=== PATIENT | female | born 1995 | race Caucasian/White ===

== ENCOUNTER 2020-12-14 16:17 | Emergency (ER) | payer SELFPAY ==
[2020-12-14 16:24] VITALS: BP 110/66; PULSE 115; O2SAT 100
[2020-12-14 16:33] VITALS: BP 110/72; PULSE 103; RESP 22; TEMP 36.9; O2SAT 100; BMI 17.9
== END 2020-12-14 17:12 | disposition left against medical advice (07) ==
LOC: HO.ED 17:12
PROVIDERS: Emergency Provider Emergency Medicine Emergency Medical Services
DX: F41.9 Anxiety disorder, unspecified (principal); R51.9 Headache, unspecified
CPT/HCPCS: 99281; 99282

== ENCOUNTER 2022-05-28 08:39 | Emergency (ER) | payer OTHER, SELFPAY ==
[2022-05-28 08:44] VITALS: BP 100/72; PULSE 87; RESP 16; TEMP 36.9; O2SAT 97; BMI 15.7
[2022-05-28 09:18] VITALS: BP 98/73; PULSE 84; RESP 19; O2SAT 99
--- NOTE | 2022-05-28 09:22 | ECG_ITS ---
Test Reason : Chest Pain / SOB Blood Pressure : / mmHG Vent. Rate : 079 BPM Atrial Rate : 079 BPM P-R Int : 094 ms QRS Dur : 078 ms QT Int : 346 ms P-R-T Axes : 055 087 058 degrees QTc Int : 396 ms Sinus rhythm with short FL Otherwise normal ECG When compared with ECG of 08-JUN-2009 14:23, No significant changes seen Referred By: Iliana Roa Electronically Signed By:JUAN C ALEGRIA MD
--- NOTE | 2022-05-28 09:30 | ED.SOB ---
HPI - SOB/Dyspnea General Chief Complaint: Dizziness Stated Complaint: dizzy, Diff breathing Time Seen by Provider: 05/28/22 08:53 Source: patient Mode of arrival: ambulatory Limitations: no limitations History of Present Illness HPI Narrative: 26-year-old female with a history of anxiety, difficulty gaining weight, migraines, GERD, pots presents with reports of episode of shortness of breath while driving at around 08:00 this morning. Patient also felt dizzy at that time. She does report that she feels dizzy quite often due to her underlying POTS and this felt pretty similar to her previous dizziness. No associated chest pain, nausea, diaphoresis. No leg swelling or leg pain. No recent travel or sick contacts. Did have COVID 1 month ago but seems recovered from this. Has had 3 COVID vaccinations. Of note, patient has been seen by her psychiatrist Dr. Jamil recently and was started on Remeron 7.5 mg 1 week ago. Patient tells me this was for weight gain. Patient increased her dose to 15 mg yesterday because she felt like it was not helping. Patient does report since starting the medication she has had some generalized muscle aches. Related Data Allergies Allergy/AdvReac Type Severity Reaction Status Date / Time No Known Allergies Allergy Verified 05/28/22 09:22 Review of Systems Review of Systems: Yes all other systems are reviewed and are negative Constitutional: Constitutional: Reports no additional constitutional complaints, Denies body ache(s), Denies chills, Denies fever(s), Denies headache(s) and Denies weakness Eyes: Eyes: Reports no additional eye complaints and Denies change in vision ENT: Reports system reviewed and no additional complaints, except as documented, Reports dizziness, Denies headache(s), Denies nasal congestion, Denies nasal discharge and Denies neck pain Cardiovascular: Cardiovascular: Reports no additional cardiovascular complaints, Denies chest pain, Denies leg edema and Reports dyspnea Respiratory: Respiratory: Reports no additional respiratory complaints, Denies cough and Reports dyspnea Gastrointestinal: Gastrointestinal: Reports no additional gastrointestinal complaints, Denies abdominal pain, Denies diarrhea, Denies nausea and Denies vomiting Genitourinary: Genitourinary: Reports no additional female genitourinary complaints and Denies urinary incontinence Musculoskeletal: Musculoskeletal: Reports no additional musculoskeletal complaints, Denies back pain, Denies arthralgias, Denies joint swelling, Denies neck pain, Denies numbness and Denies tingling Integumentary/Breasts: Skin/Breast: Reports system reviewed and no additional complaints, except as docu and Denies rash Neurologic: Reports system reviewed and no additional complaints, except as documented, Denies Abnormal speech present, Reports dizziness, Denies headache(s), Denies numbness, Denies tingling and Denies weakness [facility] Past Medical History Attestation statement: The following information was validated with the patient. Source: old records reviewed and nursing notes reviewed Medical History Anxiety Superior mesenteric artery syndrome Social History Social History Alcohol intake: current Alcohol intake frequency: holidays/special occasions only Patient Tobacco Use Status: Never used Tobacco Use of substances other than those prescribed or required for medical reasons: No Advance Directives: No Advance Directives Information Provided: No Physical Exam Vital Signs: Vital Signs: Last Vital Signs Temp 98.4 F 05/28/22 08:44 Pulse 84 05/28/22 09:18 Resp 19 05/28/22 09:18 BP 98/73 05/28/22 09:18 Pulse Ox 99 05/28/22 09:18 O2 Del Method 05/28/22 09:18 BMI result Body Mass Index 15.7 Const: General: cooperative, healthy appearing, comfortable and no acute distress Orientation/consciousness: patient oriented x3 Limitations: no limitations HEENT: Head: Yes normal to inspection Ears: hearing grossly normal bilaterally and TM's normal bilaterally General nose exam: Normal external nose present Face and sinus: Yes normal facial exam Mouth: Normal oral and palatal mucosa present Throat: Yes posterior oropharynx normal, Yes tonsils normal and Yes uvula midline Eyes: General: appearance normal, both eyes and all related structures Pupils: Equal, round and reactive pupils present Neck: Neck: Yes normal visual inspection, Yes full ROM and Yes no lymphadenopathy Chest: Chest palpation & inspection: normal inspection of the chest Resp: Effort & Inspection: normal respiratory effort Auscultation: clear to auscultation bilaterally Cardio: Rate: regular rate Rhythm: regular rhythm Peripheral pulses: Peripheral pulses 2+ throughout GI: Inspection: Yes normal to inspection Palpation (GI): Soft to palpation and nontender Auscultation: normal bowel sounds Back/Spine/Pelvis: Thoracic/Lumbar Spine: thoracic and lumbar spine normal to inspection Skin: General skin exam: no rashes or lesions noted Neuro: General: patient oriented x3, no focal motor deficits and normal sensation to monofilament Cranial nerves: Yes Equal, round and reactive pupils present Cognition (Neuro): normal cognition Speech: No Abnormal speech present Gait exam (Neuro): Normal gait present Motor exam (neuro): 5/5 motor strength present throughout Extrem: General: Yes normal to inspection Course Course Course Narrative: 0955-patient now wants to go home. Refusing labs and x-ray. We discussed that we cannot rule out any cardiac damage from her episode earlier as well as rhabdomyolysis. These be ruled out in labs. Patient continues to decline labs. Will sign out AMA. MDM - SOB/Dyspnea MDM Narrative Medical decision making narrative: This is a 26-year-old female who was a history of anxiety, pots, migraines, GERD who presents with episode of shortness of breath which occurred while driving 08:00 today with some chronic dizziness as well. Patient denies any other associated symptoms. She feels improved on arrival. She did recently start Remeron for weight gain and took an extra dose last night because she felt that it would help. Of note, also reports some muscle aches diffusely since starting the Remeron. WIll check EKG, labs, CXR Medical Records Attestation: I reviewed the patient's medical records. Lab Data Attestation: I reviewed the patient's lab results. ECG Data Attestation: I personally reviewed and interpreted this ECG as follows: ECG interpretation date: 05/28/22 ECG interpretation time: 08:59 Interpretation: Sinus rhythm with short ND with rate of 79, normal QRS, normal QT Discharge Plan Discharge Clinical Impression: Shortness of breath Patient Disposition: Left Against Medical Advice Instructions: Against Medical Advice (ED), Shortness of Breath (ED) Additional Instructions: You decided to leave before having lab work and an x-ray done. We discussed that we cannot rule out any heart injury or tissue breakdown called rhabdomyolysis without having labs done. You decided to leave without doing this. Referrals: Physician,Nonstaff [Primary Care Provider] - 1 week Stand Alone Forms: Against Medical Advice Interventions: ED Discharge Assessment Last Done: 05/28/22 10:03 Discharge Date/Time: 05/28/22 10:03
== END 2022-05-28 10:03 | disposition left against medical advice (07) ==
PROVIDERS: Emergency Provider Emergency Medicine
DX: R42 Dizziness and giddiness (principal); R06.02 Shortness of breath; Z79.899 Other long term (current) drug therapy
CPT/HCPCS: 93005; 99283; 99284

== ENCOUNTER 2022-11-09 07:33 | Emergency (ER) | payer OTHER, SELFPAY ==
[2022-11-09 07:36] VITALS: BP 112/77; PULSE 93; RESP 18; TEMP 36.8; O2SAT 98; BMI 17.6
--- NOTE | 2022-11-09 07:59 | ED_ITS ---
HPI - Headache General Chief Complaint: Headache Stated Complaint: migraine Time Seen by Provider: 11/09/22 07:52 Source: patient Mode of arrival: ambulatory Limitations: no limitations History of Present Illness HPI Narrative: headache, started yesterday no improvement with tylenol, left sided, frontal to occipital, pressure, photophobia and auditory hurts. Nausea no vomiting, currently on her menses normal menses. Patient has had headaches since she was 4. ?Trigger is her menses. Related Data Previous Rx's Medication Instructions Recorded diphenhydramine HCl 25 mg capsule 25 mg PO TID #6 caps 11/09/22 (Benadryl) naproxen 375 mg tablet 375 mg PO BID PRN pain #14 tabs 11/09/22 Allergies Allergy/AdvReac Type Severity Reaction Status Date / Time amoxicillin Allergy Anaphylaxis Verified 11/09/22 07:38 oxycodone Allergy Hives Verified 11/09/22 07:38 Sulfa (Sulfonamide Allergy Unknown Verified 11/09/22 07:38 Antibiotics) sumatriptan Allergy Anaphylaxis Verified 11/09/22 07:38 Review of Systems Neurologic: Denies Sensory deficit (Neuro) [facility] Social History Social History Advance Directives: No Advance Directives Information Provided: No Physical Exam Vital Signs: Vital Signs: Last Vital Signs Temp 98.3 F 11/09/22 07:36 Pulse 88 11/09/22 11:45 Resp 16 11/09/22 11:45 BP 100/65 11/09/22 11:45 Pulse Ox 98 11/09/22 11:45 O2 Del Method Room Air 11/09/22 11:45 BMI result Body Mass Index 17.6 Const: General: healthy appearing Nutritional Appearance: average body habitus Orientation/consciousness: oriented to person and patient oriented x3 Limitations: no limitations HEENT: Head: Yes normal to inspection Ears: external ears normal General nose exam: Normal external nose present Mouth: Normal oral and palatal mucosa present and oropharynx normal Throat: Yes posterior oropharynx normal Eyes: General: appearance normal, both eyes and all related structures Neck: Other: supple Neck: Yes normal visual inspection Chest: Chest palpation & inspection: normal inspection of the chest Resp: Auscultation: clear to auscultation bilaterally Cardio: Jugular venous distension: no JVD Rate: regular rate Rhythm: regular rhythm Heart sounds: S1 normal heart sound present and S2 normal heart sound present GI: Inspection: Yes normal to inspection Palpation (GI): Soft to palpation, nontender and No hepatosplenomegaly present Auscultation: normal bowel sounds : General: Yes no CVA tenderness Back/Spine/Pelvis: Back: no CVA tenderness Skin: General skin exam: no rashes or lesions noted Neuro: General: oriented to person and patient oriented x3 Cranial nerves: Yes CN's II-XII intact bilaterally Motor exam (neuro): 5/5 motor strength present throughout Sensory Exam: No Sensory deficit (Neuro) Extrem: General: Yes normal to inspection Psych: Appearance: grossly normal Course Reevaluation(s) Reevaluation #1: headache broke, patient had slight dystonia to phenergan will have her take benadryl for 3 days for dystonia and naprosyn for her headache Time: 11:53 Medications Administered Discontinued Medications Generic Name Dose Route Start Last Admin Trade Name Freq PRN Reason Stop Dose Admin Diphenhydramine HCl 25 mg 11/09/22 09:15 11/09/22 09:26 Diphenhydramine Hcl 50 Mg/Ml Vial IVPUSH 11/09/22 09:16 25 mg ONCE ONE Administration Promethazine HCl 25 mg/ Sodium 51 mls @ 204 mls/hr 11/09/22 08:16 11/09/22 09:27 Chloride IV 11/09/22 08:17 Infused ONCE ONE Infusion Sodium Chloride 1,000 mls @ 999 mls/hr 11/09/22 08:30 11/09/22 10:11 Ns IVCONT 11/09/22 10:30 999 mls/hr .Q1H1M LOIS Administration Ketorolac Tromethamine 30 mg 11/09/22 08:16 11/09/22 08:35 Ketorolac Tromethamine 30 Mg/Ml Vial IVPUSH 11/09/22 08:17 30 mg ONCE ONE Administration Lorazepam 1 mg 11/09/22 09:55 11/09/22 10:06 Lorazepam 2 Mg/Ml Vial IVPUSH 11/09/22 09:56 Not Given ONCE ONE Medical Decision Making Differential Diagnosis Differential Diagnoses: The differential diagnosis associated with the presentation includes (migraine headache, dystonia) Tests considered The following testing was considered but not selected: I considered a head Ct but the patient was nonfocal with a long history of the above Chronic Conditions Patient?s care impacted by: Other (migraine) Discharge Plan Discharge Clinical Impression: Migraine, Dystonia Patient Disposition: Home, Self-Care Instructions: Migraine Headache (ED), Spasmodic Torticollis (ED) Prescriptions: New naproxen 375 mg tablet 375 mg PO BID PRN (Reason: pain) Qty: 14 0RF diphenhydramine HCl [Benadryl] 25 mg capsule 25 mg PO TID Qty: 6 0RF Referrals: Tammie Pizarro PA-C [Primary Care Provider] - 5 days
[2022-11-09] MEDS: Ketorolac Tromethamine 30 MG/ML VIAL IVPUSH (08:35)
[2022-11-09] MEDS: 0.9 % Sodium Chloride 1,000 ML 999 ML IVCONT ×2 (08:35→10:11)
[2022-11-09 08:42] VITALS: BP 112/73; PULSE 80; RESP 18; O2SAT 99
[2022-11-09] MEDS: diphenhydrAMINE HCL 50 MG/ML VIAL 25 MG IVPUSH (09:26)
--- NOTE | 2022-11-09 09:56 | PC.NURSE ---
POSSIBLE DYSTONIC REACTION FROM PHENERGAN PROVIDER AWARE BENADRYL GIVEN
[2022-11-09 11:45] VITALS: BP 100/65; PULSE 88; RESP 16; O2SAT 98
== END 2022-11-09 12:25 | disposition home or self-care (01) ==
PROVIDERS: Emergency Provider Emergency Medicine; PCP Internal Medicine Cardiovascular Disease
DX: G43.909 Migraine, unspecified, not intractable, without status migrainosus (principal); G24.9 Dystonia, unspecified; Z79.899 Other long term (current) drug therapy
CPT/HCPCS: 96361; 96365; 96375; 99284; J1200; J1885; J2550